=== PATIENT | male | born 1980 | race Caucasian/White ===

== ENCOUNTER 2018-10-29 00:12 | Emergency (ER) | payer SELFPAY ==
[2018-10-29] MEDS ORDERED: Bacitracin 1 PK ONE (00:42)
== END 2018-10-29 00:47 | disposition home or self-care (01) ==
LOC: SCSER 00:12
DX: M79.81 Nontraumatic hematoma of soft tissue (principal); J45.909 Unspecified asthma, uncomplicated
CPT/HCPCS: 10060